=== PATIENT | female | born 2000 | race Caucasian/White ===

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

== ENCOUNTER 2025-03-09 23:11 | Emergency (ER) | payer OTHER ==
[~2025-03-09] VITALS: Ht 157.4 cm; Wt 83.9 kg
[2025-03-10] MEDS ORDERED: DERMABOND 1 EA APPL T ONE (00:13)
[2025-03-10] MEDS ORDERED: MG-AL HYDROXIDE/SIMETICONE 30 ML UDC PO STA (00:29)
[2025-03-10] MEDS ORDERED: Dicyclomine Hydrochloride 20 MG/10 ML OSYR PO STA (00:29)
[2025-03-10] MEDS ORDERED: Lidocaine Hydrochloride 15 ML UDC PO STA (00:29)
[2025-03-10 00:42] LABS: BASO # 0.1 10*3/uL (0.0-0.1); BASO % 0.4 % (0.0-1.0); EOS # 0.1 10*3/uL (0.0-0.4); EOS % 0.7 % (1.0-4.0); HEMATOCRIT 34.8 % (37.0-47.0); MEAN CELL VOLUME 83.9 fl (81.0-99.0); MEAN CORPUSCULAR HGB 27.2 pg (27.0-31.0); MEAN CORPUSCULAR HGB CONC 32.5 g/dl (33.0-37.0); MEAN PLATELET VOLUME 9.4 fl (9.6-12.3); MONO # 1.1 10*3/uL (0.1-1.0); MONO % 8.1 % (3.0-9.0); NEUT # 10.4 10*3/uL (2.3-7.9); NEUT % 76.1 % (47.0-73.0); PLATELET COUNT AUTOMATED 341 10*3/uL (130-400); RED BLOOD COUNT 4.15 10*6/uL (4.10-5.10); RED CELL DISTRI WIDTH 13.9 % (0-14.5); WHITE BLOOD COUNT 13.6 10*3/uL (4.8-10.8)
[2025-03-10 01:00] LABS: BUN 13 mg/dl (9-23); CHLORIDE 107 mmol/L (98-107); POTASSIUM 3.4 mmol/L (3.4-5.1)
[2025-03-10 01:20] LABS: BILIRUBIN Negative (Negative); BLOOD Trace-Intact (Negative); CLARITY Cloudy (Clear); COLOR Yellow (Yellow); GLUCOSE Negative (Negative); KETONE Negative (Negative); NITRITE Negative (Negative); SPECIFIC GRAVITY 1.015 (1.001-1.030); UROBILINOGEN 0.2 E.U./dl (0.0-1.0)
[2025-03-10 01:30] LABS: LEUKO ESTERASE Trace (Negative)
[2025-03-10 01:31] LABS: BACTERIA 1+
[2025-03-10] MEDS ORDERED: Ciprofloxacin Hydrochloride 500 MG TAB PO ONE (01:40)
[2025-03-10] MEDS ORDERED: CIPRO500 MG PO (01:41)
== END 2025-03-10 01:56 | disposition home or self-care (01) ==
LOC: ED 23:11
PROVIDERS: Internal Medicine
DX: N39.0 Urinary tract infection, site not specified (principal)